=== PATIENT | female | born 1975 | race Caucasian/White ===

== ENCOUNTER 2017-03-12 14:21 | Emergency (ER) | payer SELFPAY ==
[2017-03-12 14:38] VITALS: O2SAT 96
--- NOTE | 2017-03-12 14:46 | ERPHSYRPT ---
- History of Present Illness Time Seen by Provider: 03/12/17 14:40 Source: patient Exam Limitations: no limitations Patient Subjective Stated Complaint: Pt states "My fibromyalgia pain is acting up and has been horrible since I got here." Triage Nursing Assessment: PT alert and oriented X 3, skin pwd. pt ambulates without difficulty, able to speak in full sentences. sitting on bed without any difficulties. Physician History: 41 y/o female with history of fibromyalgia comes to the ER after moving from [place] with complaints of bilateral leg pain and lower right sided tooth pain since yesterday. Pt describes the pain as sharp, constant, 7/10 and not relieved by advil. Pt admits to running out of her hydrocodone and only uses it sparingly. Pt denies any fever or chills. Timing/Duration: yesterday Severity: moderate Allergies/Adverse Reactions: nalbuphine HCl [From Nubain] Allergy (Mild, Unverified 01/24/12 11:06) Penicillins Allergy (Mild, Unverified 01/24/12 11:06) tramadol Allergy (Mild, Verified 03/12/17 14:39) haloperidol [From Haldol] Allergy (Verified 03/12/17 14:39) lock jaw Home Medications: Levetiracetam [Keppra] 1,500 mg DAILY 01/24/12 [History] Quetiapine Fumarate 100 mg [Seroquel 100 MG] 200 DAILY 01/24/12 [History] Estradiol 2 mg PO DAILY 03/12/17 [History] Medroxyprogesterone 2.5 mg [Provera 2.5 MG] 2.5 mg PO DAILY 03/12/17 [ History] Pregabalin 50 mg [Lyrica 50MG] 50 mg PO BID 03/12/17 [History] Hx Tetanus, Diphtheria Vaccination/Date Given: Yes Hx Influenza Vaccination/Date Given: No Hx Pneumococcal Vaccination/Date Given: No Immunizations Up to Date: Yes - Review of Systems Constitutional: No Fever, No Chills Eyes: No Symptoms Ears, Nose, & Throat: No Symptoms, Mouth Pain, Loose Teeth Respiratory: No Cough, No Dyspnea Cardiac: No Chest Pain, No Edema, No Syncope Abdominal/Gastrointestinal: No Abdominal Pain, No Nausea, No Vomiting, No Diarrhea Genitourinary Symptoms: No Dysuria Musculoskeletal: Myalgias, No Back Pain, No Neck Pain Skin: No Rash Neurological: No Dizziness, No Focal Weakness, No Sensory Changes Psychological: No Symptoms Endocrine: No Symptoms All Other Systems: Reviewed and Negative - Past Medical History Pertinent Past Medical History: Yes Neurological History: Seizures Musculoskeletal History: Fibromyalgia GI Medical History: Pancreatitis History: No Pertinent History Psycho-Social History: Bipolar, Depression - Past Surgical History Past Surgical History: Yes Other Surgical History: tubal. - Social History Smoking Status: Current every day smoker How long have you smoked: years Exposure to second hand smoke: Yes Drug Use: none Patient Lives Alone: No - Female History Hx Last Menstrual Period: menopaus Hx Now: No - Nursing Vital Signs Nursing Vital Signs: Initial Vital Signs Temperature 98.5 F 03/12/17 14:28 Pulse Rate 94 H 03/12/17 14:28 Respiratory Rate 16 03/12/17 14:28 Blood Pressure 130/87 03/12/17 14:28 O2 Sat by Pulse Oximetry 96 03/12/17 14:28 Pain Scale Pain Intensity [Thigh] 7 Pain Intensity 7 - Physical Exam General Appearance: mild distress, alert Eye Exam: PERRL/EOMI, eyes nml inspection Ears, Nose, Throat Exam: normal ENT inspection, TMs normal, pharynx normal, moist mucous membranes, other (tooth decay) Neck Exam: normal inspection, non-tender, supple, full range of motion Respiratory Exam: normal breath sounds, lungs clear, No respiratory distress Cardiovascular Exam: regular rate/rhythm, normal heart sounds, normal peripheral pulses Gastrointestinal/Abdomen Exam: soft, normal bowel sounds, No tenderness, No mass Back Exam: normal inspection, normal range of motion, No CVA tenderness, No vertebral tenderness Extremity Exam: normal inspection, normal range of motion, pelvis stable Neurologic Exam: alert, oriented x 3, cooperative, normal mood/affect, nml cerebellar function, nml station & gait, sensation nml, No motor deficits Skin Exam: normal color, warm, dry, No rash Lymphatic Exam: No adenopathy SpO2: 96 Oxygen Delivery: Room Air - Course Nursing assessment & vital signs reviewed: Yes - Progress Progress: unchanged Progress Note: 03/12/17 14:45 Pt will be given a short course of norco and 7 days of clindamycin. Pt has F/U with PCP at [facility] - Departure Time of Disposition: 14:45 Departure Disposition: Home Clinical Impression: Fibromyalgia, Tooth infection Condition: Stable Critical Care Time: No Referrals: DOCTOR,NO FAMILY [Primary Care Provider] - Instructions: Chronic Pain -- Adult, Tooth Decay Additional Instructions: Follow up with your primary care doctor in [facility]. Prescriptions: Hydrocodone Bit/Acetaminophen [[place] 5-325 Tablet] 1 each PO Q6H PRN PRN #10 tablet PRN Reason: Pain Clindamycin HCl 150 mg PO TID #21 capsule
[2017-03-12 15:00] VITALS: BP 130/60; PULSE 76
== END 2017-03-12 14:59 | disposition home or self-care (01) ==
LOC: ED 14:21
DX: M79.7 Fibromyalgia (principal); K04.7 Periapical abscess without sinus
CPT/HCPCS: 99281

== ENCOUNTER 2017-03-19 11:43 | Emergency (ER) | payer SELFPAY ==
--- NOTE | 2017-03-19 12:46 | ERPHSYRPT ---
- History of Present Illness Time Seen by Provider: 03/19/17 12:34 Source: patient Patient Subjective Stated Complaint: Pt states "I am here again for my teeth. [facility] and they wanted 600 dollars and I cannot get that for a couple of weeks and I am almost out of antibiotics and it just hurts so bad." Triage Nursing Assessment: Pt alert and orietned X 3, skin pwd pt ambulates without difficulty, able to speak in full sentences. pt bottom front teeth are black and has carries Physician History: CC: tooth check Hx: 41 y/o patient recently moved back from [place]. She has hx of seizures and takes keppra and lyrica. She has lower tooth problems. Saw [facility] this AM a couple of hours ago and go the estimate for tooth surgery. She did not have the money to schedule so came to ER to get more pain medication. She already took cleocin. The dentist this AM did not advise addl abtx. Not . No fever or chills. No chest pain or dyspnea. Allergies/Adverse Reactions: nalbuphine HCl [From Nubain] Allergy (Mild, Verified 03/19/17 12:08) Penicillins Allergy (Mild, Unverified 01/24/12 11:06) tramadol Allergy (Mild, Verified 03/12/17 14:39) haloperidol [From Haldol] Allergy (Verified 03/12/17 14:39) lock jaw Home Medications: Levetiracetam [Keppra] 3,000 mg PO DAILY 01/24/12 [History] Quetiapine Fumarate 100 mg [Seroquel 100 MG] 400 mg PO DAILY 01/24/12 [ History] Estradiol 2 mg PO DAILY 03/12/17 [History] Medroxyprogesterone 2.5 mg [Provera 2.5 MG] 2.5 mg PO DAILY 03/12/17 [ History] Pregabalin 50 mg [Lyrica 50MG] 50 mg PO BID 03/12/17 [History] Hx Tetanus, Diphtheria Vaccination/Date Given: Yes Hx Influenza Vaccination/Date Given: No Hx Pneumococcal Vaccination/Date Given: No Immunizations Up to Date: Yes - Review of Systems Constitutional: No Fever, No Chills Ears, Nose, & Throat: Mouth Pain Respiratory: No Dyspnea Abdominal/Gastrointestinal: No Vomiting Skin: No Skin Lesions - Past Medical History Pertinent Past Medical History: Yes Neurological History: Seizures Musculoskeletal History: Fibromyalgia GI Medical History: Pancreatitis History: No Pertinent History Psycho-Social History: Bipolar, Depression - Past Surgical History Past Surgical History: Yes Other Surgical History: tubal. - Social History Smoking Status: Current every day smoker How long have you smoked: years Exposure to second hand smoke: Yes Drug Use: none Patient Lives Alone: No - Female History Hx Last Menstrual Period: 3 years ago Hx Now: No - Nursing Vital Signs Nursing Vital Signs: Initial Vital Signs Temperature 97.9 F 03/19/17 12:03 Pulse Rate 92 H 03/19/17 12:03 Respiratory Rate 18 03/19/17 12:03 Blood Pressure 114/75 03/19/17 12:03 O2 Sat by Pulse Oximetry 99 03/19/17 12:03 Pain Scale Pain Intensity 8 - Physical Exam General Appearance: alert Eye Exam: bilateral eye: PERRL, EOMI Nasal Exam: normal inspection Throat Exam: pharynx normal, No trismus Neck Exam: non-tender, supple Neurologic Exam: alert, oriented x 3, cooperative Skin Exam: warm, dry SpO2: 99 Oxygen Delivery: Room Air Comments: lower teeth are broken with caries and mild swelling surrounding. No trismus or facial cellulitis. Appears to be chronic tooth problems. - Course Nursing assessment & vital signs reviewed: Yes - Progress Progress Note: 03/19/17 12:44 Advised pt she saw dentist in past couple of hours abtx not indicated and ER can not refill opioids. Rx orudis. Inst given. Counseled pt/family regarding: diagnosis, need for follow-up - Departure Time of Disposition: 12:46 Departure Disposition: Home Clinical Impression: Toothache, Dental caries Condition: Stable Critical Care Time: No Referrals: DOCTOR,NO FAMILY [Primary Care Provider] - Instructions: Tooth Decay Additional Instructions: Rx ketoprofen. Follow up with dentist. Prescriptions: Ketoprofen 75 mg PO TID #15 capsule
[2017-03-19 13:00] VITALS: BP 118/76; PULSE 90; O2SAT 97
== END 2017-03-19 12:59 | disposition home or self-care (01) ==
LOC: ED 11:43
DX: K02.9 Dental caries, unspecified (principal); K08.89 Other specified disorders of teeth and supporting structures
CPT/HCPCS: 99283